=== PATIENT | female | born 1940 | race Caucasian/White ===

== ENCOUNTER → 2018-02-02 | Outpatient (CLI) | payer OTHER | LOC: M.RAD 10:34 | DX: Z12.31 Encounter for screening mammogram for malignant neoplasm of breast (principal) ==

== ENCOUNTER → 2018-02-08 | Outpatient (CLI) | payer OTHER | LOC: M.RAD 10:17 | DX: R92.1 Mammographic calcification found on diagnostic imaging of breast (principal) ==

== ENCOUNTER → 2018-08-16 | Outpatient (CLI) | payer OTHER | LOC: M.RAD 10:40 | DX: R92.1 Mammographic calcification found on diagnostic imaging of breast (principal); Z85.3 Personal history of malignant neoplasm of breast ==

== ENCOUNTER → 2018-08-25 | Outpatient (CLI) | payer OTHER ==
--- NOTE | 2018-09-01 13:09 | PATH ---
[address] [address] PATHOLOGY RPT PROCEDURE Name: ZELDA HAMPTON Room: [facility].#: [id number] Admission: 08/25/18 Date of : 42 Discharge: Report #: [id number] Path Case #: [id number] [facility] Accession Number: [id number] . 01 Material submitted: . breast - LEFT BREAST BIOPSY. Modifiers: left . 01 Clinical history: . Left breast stereotactic biopsy for calcification . 02 Diagnosis: Left breast calcifications, stereotactic biopsy: - DUCTAL CARCINOMA IN SITU, NUCLEAR GRADE II, CRIBRIFORM TYPE, SPANNING AT LEAST 6 MM, ASSOCIATED WITH CALCIFICATIONS. SEE COMMENT. (JOZEF:nathaly; 08/26/2018) MBR/08/26/2018 . 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 Calcifications are also seen in nonneoplastic breast tissue. Estrogen and progesterone receptor studies are pending on A3 and will be the subject of an addendum report. Reviewed with Dr. Tobin Espino who agrees with the diagnosis. Marina (acting [facility] breast navigator) notified at approximately 1035 on 08/27/2018. (JOZEF:nathaly; 08/26/2018) . 02 Addendum: . Special studies report received from [facility], [address] [place] [address], [address], [place], [address], on case [id number], labeled with their number [id number], dated 08/31/2018. . Breast/Prognostic Marker Analysis . Specimen Site: Lt Breast, Calcs, Breast cancer-DCIS. Specimen ID #: [id number] . ER (Estrogen Receptor) Present/Positive Percent: 70.00% Analysis: Manual Comments: Staining intensity: Moderate to strong. Prognostic groupings are reported only for invasive, primary breast carcinomas, Please disregard the reference ranges on the right. . OR (Progesterone Receptor) Absent/Negative Percent: 0.00 Analysis: [place] [address] PATHOLOGY RPT PROCEDURE Name: ZELDA HAMPTON Room: [facility].#: [id number] Admission: 08/25/18 Date of : 42 Discharge: Report #: [id number] Path Case #: [id number] Comments: Prognostic groupings are reported only for invasive, primary breast carcinomas, Please disregard the reference ranges on the right. . Time to Fixation (Cold Ischemic Time): 1 minute Duration of Fixation: 9 hours 29 minutes Type of Fixative: 10% Neutral Buffered Formalin . . at [employer], [facility]. Chetan Bhakta MD Surgical Pathologist . Methodology A rabbit monoclonal antibody (clone SP1) that recognized the Estrogen Receptor is used to perform immunohistochemistry on routinely fixed (formalin) paraffin embedded tissue on the [place] [employer]. The specimen is processed using a polymer detection system. The percentage of stained tumor nuclei is determined either manually or by image analysis. This test is intended for in vitro diagnostic use. This test is used for clinical purposes. . A rabbit monoclonal antibody (clone 1E2) that recognized the Progesterone Receptor is used to perform immunohistochemistry on routinely fixed (formalin) paraffin embedded tissue on the [place] Benchmark. The specimen is processed using a polymer detection system. The percentage of stained tumor nuclei is determined either manually or by image analysis. This test is intended for in vitro diagnostic use. This test is used for clinical purposes. . . Intended Use: This antibody is intended for in vitro diagnostic (IVD) use. Estrogen Receptor (ER) (SP1) is a rabbit monoclonal antibody (IgG) that is intended for the qualitative detection of estrogen receptor (ER) antigen in sections of formalin-fixed, paraffin-embedded tissue. ER is a rabbit monoclonal antibody that recognizes human estrogen receptor alpha. . This antibody is intended for in vitro diagnostic (IVD) use. Progesterone Receptor (OR) (1E2) is a rabbit monoclonal antibody (IgG) that is intended for the qualitative detection of progesterone receptor (OR) antigen in sections of formalin fixed, paraffin embedded tissue. OR is a rabbit monoclonal antibody that recognizes the A and B forms of the human progesterone receptor. . Disclaimer: This Test was performed by [employer] at [facility], [address]. . [place] [address] PATHOLOGY RPT PROCEDURE Name: ZELDA HAMPTON Room: [facility]#: [id number] Admission: 08/25/18 Date of : 42 Discharge: Report #: [id number] Path Case #: [id number] [facility] [employer] is a business unit of [employer]. a wholly-owned subsidiary of [employer]. . This assay has not been validated on decalcified tissues. Results should be interpreted with caution if this specimen was decalcified given the likelihood of false negativity on decalcified specimens. . Any image(s) that accompany this report is/are a food products sales representative image(s) only and should not be used to render a diagnosis. . This interpretation is contingent on the specimen and the clinical information received. . For any special tests/stains performed, known positive cells or tissues are tested with each marker and examined to ensure positivity. Positive and negative internal controls, if present, react appropriately. . This analysis is an adjunct to the evaluation of the referring physician and does not represent a final diagnosis. . The immunohistochemistry tests performed at [employer]. were validated on tissue fixed in 10% neutral buffered formalin. The performance characteristics of the tests performed on tissue processed in other fixatives is not known. . ER/OR ASCO/CAP guidelines require fixation in neutral buffered formalin for a minimum of 6 and a maximum of 72 hours. Fixation times less than 6 hours may not adequately preserve cell proteins. Fixation times longer than 72 hours may cause excess cross-linking of proteins reducing the antigen available for staining. Either scenario can cause reduced staining; hence false negative results are possible and should be considered for these situations. The time from biopsy/excision to fixation in formalin (cold ischemic time) must be less than 1 hour. Time to fixation (cold ischemic time) greater than 1 hour should be interpreted with caution. REF: Jessica Yoon, et al. [place] Society of Clinical Oncology/College of [place] Pathologists Guideline Recommendations for Immunohistochemical Testing of Estrogen and Progesterone Receptors in Breast Cancer. J Clin Oncol. 2009October 23; 28(16): 6951-0250. . . A complete copy of the report is on file. . Professional and Technical services performed by [employer]. at [address] [address], [place] [address]. . (AMJ 09/01/2018) AZJ/09/01/2018 Addendum Electronically Signed by Francisco Willingham MD, [place] [address] PATHOLOGY RPT PROCEDURE Name: ZELDA HAMPTON Room: [facility]#: [id number] Admission: 08/25/18 Date of : 42 Discharge: Report #: [id number] Path Case #: [id number] . 02 Electronically signed: . Francisco Willingham MD, Pathologist NPI- [id number] . 01 Gross description: . Received in formalin labeled "Zelda Hampton, left breast calcifications," are multiple needle cores of yellow-mclaughlin fibrofatty tissue measuring 2.5 x 2.6 x 0.6 cm in aggregate dimensions. Additionally received in the same container is a blue plastic cassette containing multiple needle cores of yellow-mclaughlin fibrofatty tissue measuring 2.5 x 2.0 x 0.5 cm in aggregate dimensions. The tissue in the cassette is transferred to cassette A1 and the remaining tissue is submitted in its entirety in cassette A2 and A3. The cold ischemic time is 1 minute. The total formalin fixation time is 9 hours and 29 minutes. (TSD; 08/25/2018) TOB/TOB . 02 Pathologist provided ICD-10: D05.12 . 02 CPT . 079262 Specimen Comment: A courtesy copy of this report has been sent to Specimen Comment: [phone], , . Specimen Comment: Report sent to ,DR GARZON / DR LORA Performed at: [address], [place] [address] MD Shine Eastman MD Phone: [phone] Performed at: 02 [facility] [address], [place], [place] [address] MD Francisco Willingham MD Phone: [phone]
== END | disposition home or self-care (01) ==
LOC: M.RAD 07:46
DX: D05.12 Intraductal carcinoma in situ of left breast (principal)

== ENCOUNTER → 2018-09-08 | Outpatient (CLI) | payer OTHER ==
[~2018-09-08] MED LIST: FOSAMAX 70 MG T70 MG PO; HYDROCHLOROTH12.5 M1 PO; LIPITOR 20 MG T20 M1 PO; LISINOPRIL10 MG PO
[2018-09-08 08:23] LABS: CREATININE 0.9 mg/dL (0.6-1.3)
== END ==
LOC: M.LAB 08:00 → M.MRI 09:30
PROVIDERS: Surgery
DX: C50.912 Malignant neoplasm of unspecified site of left female breast (principal); Z98.890 Other specified postprocedural states

== ENCOUNTER → 2018-09-10 | Outpatient (CLI) | payer OTHER ==
--- NOTE | ~2018-09-10 | CON ---
[address] [address] CONSULTATION Name: DUONGHUMPHREY GENEVIEVE [facility] [id number] Admission: 09/10/18 Attend Phys: Javier Whitney MD Discharge: Date of : 42 Report #: [id number] THIS REPORT FOR: //name// CC: Javier Gallardo DATE OF SERVICE: 09/10/2018 REFERRING PHYSICIANS: Include Lyric Lux MD; Skye King MD and Clem Gallardo DO. [facility] phone is [phone]. PRIMARY SITE AND HISTOPATHOLOGY: The patient has a ductal carcinoma in situ of the left breast. HISTORY OF PRESENT ILLNESS: The patient is a 78-year-old woman who was treated with breast conservation therapy for what appeared to be ductal carcinoma in situ of the left breast about 23 years ago at [facility] and she remembers receiving about 6 weeks of radiation therapy after lumpectomy and those records probably are not obtainable at this point since that hospital has closed down and then most recently, she had a mammogram performed on 02/02/2018, which showed calcifications in the left breast and she had additional views and ultimately had a biopsy of this area on 08/25/2018, which showed a grade 2 ductal carcinoma in situ, cribriform type spanning at least 0.6 cm. That was 70% estrogen receptor positive, 0% progesterone receptor positive and she saw her surgeon, Dr. Lux who discussed the option of a lumpectomy with re-radiation, lumpectomy without radiation therapy or mastectomy. So, she presents to discuss her treatment options. She also saw Dr. King. I discussed the option of antiestrogen therapy after her operation. PAST MEDICAL HISTORY AND PAST SURGICAL HISTORY: Includes cataract repair, hypertension and also, the breast conservation therapy in 1992 at [facility]. MEDICATIONS: Atorvastatin, lisinopril, hydrochlorothiazide, alendronate. ALLERGIES: She has no known drug allergies. OBSTETRICS AND GYNECOLOGY: Menarche at age 15. Last menstrual period age 53. She is 2, para 0. FAMILY HISTORY: Mother and father's side is unknown. 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 She has a daughter. She has a son. Cigarettes, she smoked about a half pack per day cigarettes since her 20s[place] [address] CONSULTATION Name: HUMPHREY WATTERS Room: [facility]#: [id number] Admission: 09/10/18 Attend Phys: Javier Whitney MD Discharge: Date of : 42 Report #: [id number] quit smoking in 2003. REVIEW OF SYSTEMS: GENERAL: She denied having any fevers or chills. SKIN: She denied having any color changes, itching, bruising. LYMPH NODES: She does not have any enlarged or painful glands in the neck. ENDOCRINE: She denied having any hot or cold intolerance. HEMATOLOGY AND IMMUNOLOGY: The patient had no recent bleeding. MUSCULOSKELETAL: She does have chronic back pain in the sacroiliac joints. HEAD AND NECK: She denied having any headaches, migraines. RESPIRATION: She denied having any shortness of breath. CARDIOVASCULAR: She denies having any palpitations. GASTROINTESTINAL: She denied having any nausea or vomiting. NEUROLOGIC: Denied having any focal weakness. PHYSICAL EXAMINATION: With my nurse, Coby Mclaughlin, present: VITAL SIGNS: Height 5 feet 6 inches, weight pounds, blood pressure 141/58, pulse 83, oxygen saturation 97%. GENERAL PSYCHIATRIC: The patient was alert and oriented, no acute distress. LYMPH NODES: No cervical, supraclavicular or axillary lymphadenopathy. EYES: Pupils are equal, round, react to light and accommodation. Extraocular movement was intact. HEAD, EARS, NOSE AND THROAT: Mouth had no visible lesions. BREASTS: Right breast had no suspicious palpable masses. Left breast had no suspicious palpable masses. ABDOMEN: Nontender. Spleen is not palpable. Liver was at the costal margin. EXTREMITIES: Had no clubbing, cyanosis or edema. NEUROLOGIC: Cranial nerves 2-12 are intact. Sensation was intact. The patient had 5/5 strength in her extremities. ASSESSMENT AND PLAN: The patient was told that treatment options include lumpectomy without radiation therapy, lumpectomy with radiation therapy or mastectomy. The efficacy of lumpectomy without radiation therapy can be found in the article with a title Pathologic Findings From The National Surgical Adjuvant Breast Project Protocol B17 that was published in the article, which had the title Lumpectomy and Radiation Therapy For The Treatment of Intraductal Breast Cancer Findings From The National Surgical Adjuvant Breast And Bowel Project B17. Patients were randomized between lumpectomy alone and lumpectomy and radiation therapy and the radiation therapy reduced noninvasive breast tumor recurrence is from 13.4% to 8.2% and an invasive breast recurrences were decreased from 13.4% to 3.9%. Despite no impact on survival, so I discussed re-radiation versus no re-radiation. With re-radiation, she can have skin thickening. There is some risk of a nonhealing ulcer developing though in recent series, the people tend to tolerate re-radiation. In her case, she was more interested in just lumpectomy alone at this point and I think that is reasonable. The risks, benefits and logistics of radiation therapy were [facility] [address] [place] [address] CONSULTATION Name: DUONGHUMPHREY GENEVIEVE Room: [facility].#: [id number] Admission: 09/10/18 Attend Phys: Javier Whitney MD Discharge: Date of : 42 Report #: [id number] discussed with the patient in detail and so right now, she is planning on going back to her surgeon undergoing lumpectomy alone if that is cosmetically feasible and then, regular followup with the patient after surgery just to confirm the pathology and final treatment management. Thank you very much for this consult. By: 1612 1251Dbrianda Whitney MD /nt
== END ==
LOC: M.RTH 04:36
DX: Z08 Encounter for follow-up examination after completed treatment for malignant neoplasm (principal); I10 Essential (primary) hypertension; Z85.3 Personal history of malignant neoplasm of breast; Z79.899 Other long term (current) drug therapy; Z92.3 Personal history of irradiation

== ENCOUNTER → 2018-09-10 | Outpatient (CLI) | payer OTHER | LOC: M.ULTRA 10:53 | DX: C50.912 Malignant neoplasm of unspecified site of left female breast (principal) ==

== ENCOUNTER → 2018-09-14 | Outpatient (CLI) | payer OTHER ==
[~2018-09-14] MED LIST changes: +NORCO 5-325 TA1 EACH PO
--- NOTE | 2018-09-16 16:06 | PATH ---
[address] [address] PATHOLOGY RPT PROCEDURE Name: ZELDA HAMPTON Room: [facility] Lindsay#: [id number] Admission: 09/14/18 Date of : 42 Discharge: Report #: [id number] Path Case #: [id number] [facility] Accession Number: [id number] . 01 Material submitted: . axilla - LEFT AXILLARY NODE. Modifiers: left . 01 Clinician provided ICD-10: n . 01 Clinical history: . 2.01 x 0.91 x 1.71 cm mass Hx of DCIS . 02 Diagnosis: "Left axillary node", needle biopsy: - Lymph node with mild hyperplasia; no evidence of lymphoma or metastatic carcinoma. (See comment) (JAEL:nathaly; 09/16/2018) BHAVANI/09/16/2018 . 02 Comment: Sections show needle core biopsy fragments of lymph node with retained kait architecture. Sinus histiocytes are noted. Small germinal centers are identified. No markedly atypical lymphoid cells, including Ruben-Rufino cells, are identified. No metastatic carcinoma, granulomas or other infiltrative processes are seen. . To highlight the kait architecture, properly controlled immunohistochemical stains are performed. . Block A1 CD20 - stains B-cells primarily in follicles PAX-5 - stains B-cells primarily in follicles CD3 - stains interfollicular T-cells CD10 - highlights germinal centers BCL-6 - highlights germinal centers BCL-2 - germinal centers are nonreactive . There is no evidence of lymphoma or metastatic carcinoma identified on H and E staining. The H and E stains are co-reviewed with Dr. Francisco Willingham. Clinical and radiographic correlation is recommended. . The case was discussed preliminarily with Dr. Lyric Lux by Dr. Francisco Willingham on 09/15/18 at 0950. . (CLW:nathaly; 09/16/2018) . 02 [place] [address] PATHOLOGY RPT PROCEDURE Name: ZELDA HAMPTONE Room: [facility]#: [id number] Admission: 09/14/18 Date of : 42 Discharge: Report #: [id number] Path Case #: [id number] Electronically signed: . Caroline Palomares MD, Pathologist NPI- [id number] . 01 Gross description: . Received in formalin labeled "Zelda Hampton, left axillary node," are 6 distinct needle cores of brock soft tissue ranging from 0.6 to 1.6 cm in length and measuring less than 0.1 cm each in diameter. The specimen is submitted entirely in cassettes A1 through A3. (TSD; 09/14/2018) TOB/TOB . 02 Pathologist provided ICD-10: R59.0 . 02 CPT . 389431, A14662, Z24886 Specimen Comment: A courtesy copy of this report has been sent to Specimen Comment: [phone], . Specimen Comment: Report sent to / DR YUN Performed at: 01 [facility] [address] [place] [id number] MD Shine Eastman MD Phone: [phone] Performed at: [id number] [id number] MD Sam Dan MD Phone: [phone]
== END | disposition home or self-care (01) ==
LOC: M.ULTRA 12:04
DX: R59.0 Localized enlarged lymph nodes (principal); Z79.899 Other long term (current) drug therapy; Z79.891 Long term (current) use of opiate analgesic; Z98.890 Other specified postprocedural states

== ENCOUNTER → 2018-09-17 | Day surgery (SDC) | payer OTHER ==
--- NOTE | ~2018-09-17 | OP ---
[address] [address] OPERATIVE REPORT Name: HUMPHREY WATTERS Room: [facility].#: [id number] Admission: 09/17/18 Attend Phys: Lyric Lux MD Discharge: Date of : 42 Report #: [id number] THIS REPORT FOR: //name// CC: Clem Lux DATE OF SERVICE: 09/17/2018 PREOPERATIVE DIAGNOSIS: Malignant neoplasm overlapping sites, left female breast. POSTOPERATIVE DIAGNOSIS: Malignant neoplasm overlapping sites, left female breast. PROCEDURE: 1. Left breast needle localized lumpectomy. 2. Left breast reconstruction using local tissue flaps x 2, 3 x 3 cm. SURGEON: Dr. Lyric Lux. LINE APPLIANCE ASSEMBLER: EMMA Marte. ANESTHESIA: General anesthesia. ESTIMATED BLOOD LOSS: 1 mL. COMPLICATIONS: None. FINDINGS: Incision 4 cm in length, 2 cm from nipple 8 o'clock position, periareolar clip within the mammographic specimen. INDICATIONS: The patient is a 78-year-old female with a history of breast cancer in 1992 of left breast, status post lumpectomy and radiation. This was DCIS. She has a new breast cancer noted on imaging in 01/2018 and redemonstrated on imaging of 07/2018 showing an increase in Willis at the 6 o'clock left breast, 5 cm from nipple. Stereotactic biopsy on 08/25/2018 showed grade 2 DCIS, ER positive, [place] negative. She was deemed an appropriate candidate for repeat lumpectomy without additional radiation. Risks and benefits for lumpectomy were discussed with the patient, delineated in the H and P and she agreed to proceed. PROCEDURE IN DETAIL: The patient was brought to the operating room after informed consent had been obtained. She was placed under general anesthesia in the supine position with the left arm extended. The left breast was then prepped and draped in normal sterile manner. Prior to skin incision, a combination of 1% lidocaine plain and 0.5% Marcaine [place] [address] OPERATIVE REPORT Name: HUMPHREY WATTERS Room: [facility] M.R.#: [id number] Admission: 09/17/18 Attend Phys: Lyric Lux MD Discharge: Date of : 42 Report #: [id number] A periareolar skin incision was made with a knife. This was deepened to the subcutaneous tissues using the Bovie electrocautery. Path was created toward the wire exit site. Once the wire was identified, was grasped with 2 hemostat, was brought into the incision. The Bovie electrocautery was then used to excise a lump of tissue surrounding the pathway of the wire and an obvious biopsy cavity. Once completely removed, it was labeled for orientation purposes. This was somewhat difficult. It was very close to the anterior inferior margin of the skin. It was sent for mammographic specimen and mammogram did confirm that the clip was within the specimen. The wound was copiously irrigated with normal saline. The decision was made to proceed with margins. The region of the inferior margin was grasped with an Allis clamp. The Metzenbaum scissors were used to excise a rim of tissue to encompass the new inferior margin. First attention was turned to the medial margin. This was excised with the Bovie electrocautery, labeled for orientation purposes and handed off for permanent specimen. This was repeated in the region of the inferior margin, which was very difficult due to its proximity to the skin and excised with Metzenbaum scissors and was a fragmented specimen. If this were positive, I would recommend excision of the skin in this region for margin. This was repeated then in the lateral margin, superior margin posterior and anterior margins. At this point, the lumpectomy cavity was marked with four Hemoclips. I then proceeded with mobilization of the breast tissue to close the defect. The breast tissue was mobilized in the superficial plane with the Bovie electrocautery, both medially, superiorly and laterally. This was then mobilized also in the posterior plane as well, creating mobilized tissue flaps approximately 3 x 3 cm medially and 3 x 3 cm laterally. These breast flaps were then reapproximated with interrupted 3-0 Vicryl dyed sutures to fill in as much of the space inferiorly as possible. I then proceeded with additional mobilization in the superficial plane to release some of the tension for better cosmesis. At this point, the deep dermal layers were closed with interrupted 3-0 Vicryl sutures and skin was closed with 4-0 Monocryl in a subcuticular manner. The wound was dressed with Dermabond dressing. The patient tolerated the procedure well. Sponge, lap and needle counts were correct x 2 at the end of procedure. She was transferred to recovery in stable condition. By: 1205 1414Minilana Lux MD /nt
[2018-09-17 07:37] LABS: HEMATOCRIT 38.7 % (37.0-47.0); HEMOGLOBIN 13.3 gm/dL (12.0-15.0); MCH 31.3 pg (26.0-34.0); MCHC 34.4 g/dL (28.0-37.0); MPV 8.1 fl. (7.2-11.1); RBC 4.25 mil/uL (4.20-5.00); RDW-CV 13.7 % (10.5-14.5); WBC 6.3 thou/uL (4.0-11.0)
[2018-09-17 07:49] LABS: CALCIUM 9.4 mg/dL (8.5-10.1); CREATININE 0.8 mg/dL (0.6-1.3)
--- NOTE | 2018-09-18 12:27 | EKG ---
[place] [address] ELECTROCARDIOGRAM REPORT Name: AMBER WATTERSDYChan VALLEJO Room: [facility].#: [id number] Admission: 09/17/18 Attend Phys: Lyric Lux MD Discharge: Date of : 42 Report #: [id number] THIS REPORT FOR: //name// [facility] Test Date: 2018-09-17 Test Time: 07:21:02 Pat Name: HUMPHREY WATTERS Department: Room: Gender: [employer] Repairer: [facility] : 1940 Requested By: Lyric Lux Order Number: [id number] Reading MD: Kang Szymanski Measurements Intervals [place] Rate: 68 P: 23 MD: 155 QRS: 7 QRSD: 82 T: 13 QT: 382 QTc: 407 Interpretive Statements Sinus rhythm No previous ECG available for comparison Electronically Signed On 09-18-2018 12:27:49 CDT by Kang Szymanski [email or web address] <ELECTRONICALLY SIGNED> By: Kang Szymanski MD, [facility] 09/18/18 1227 0721 0721 Kang Szymanski MD, FACC /EPI
--- NOTE | 2018-09-22 11:06 | PATH ---
[address] [address] PATHOLOGY RPT PROCEDURE Name: ZELDA HAMPTON Room: [facility] M.R.#: [id number] Admission: 09/17/18 Date of : 42 Discharge: Report #: [id number] Path Case #: [id number] [facility] Accession Number: [id number] . 01 Material submitted: . PART A: breast - LEFT BREAST CANCER, LONG LAT,SHORT SUP,DBL DEEP. Modifiers: left PART B: breast - LEFT BREAST, STITCH HUNTLEY NEW MEDIAL MARGIN. Modifiers: left PART C: breast - LEFT BREAST, STITCH HUNTLEY NEW INFERIOR MARGIN. Modifiers: left PART D: breast - LEFT BREAST, STITCH HUNTLEY NEW LATERAL MARGIN. Modifiers: left PART E: breast - LEFT BREAST, STITCH HUNTLEY NEW SUPERIOR MARGIN. Modifiers: left PART F: breast - LEFT BREAST, STITCH HUNTLEY NEW POSTERIOR MARGIN. Modifiers: left PART G: breast - LEFT BREAST, STITCH HUNTLEY NEW ANTERIOR MARGIN. Modifiers: left . 01 Clinical history: . Left breast cancer. A. Additional stitch used to re-aproximate biopsy cavity; K=lateral, 10=superior . 02 Diagnosis: A. Tissue submitted as "left breast cancer": - RESIDUAL DUCTAL CARCINOMA IN SITU (DCIS), NUCLEAR GRADE II (INTERMEDIATE GRADE), CRIBRIFORM TYPE, ADJACENT TO CHANGES OF PRIOR BIOPSY, SPANNING AN ESTIMATED 25 MM, WITH ALL SURGICAL MARGINS FREE OF INVOLVEMENT AND CLOSEST (POSTERIOR) LOCATED 0.3 MM AWAY. SEE COMMENT. . B. Left breast, stitch marked new medial margin: - DCIS, NUCLEAR GRADE II (INTERMEDIATE GRADE), CRIBRIFORM TYPE, SPANNING 0.7 MM, WITH NEW MARGIN FREE OF INVOLVEMENT AND LOCATED 2 MM AWAY. SEE COMMENT. . C. Left breast, new inferior margin: - Benign breast tissue with changes of prior biopsy and luminal calcifications, negative for atypia. . D. Left breast, new lateral margin: - Benign breast tissue with luminal calcifications, negative for atypia. . E. Left breast, new superior margin: - Benign breast tissue with luminal calcifications, negative for atypia. . F. Left breast, new posterior margin: - Benign breast tissue, [place] [address] PATHOLOGY RPT PROCEDURE Name: ZELDA HAMPTON Room: [facility].#: [id number] Admission: 09/17/18 Date of : 42 Discharge: Report #: [id number] Path Case #: [id number] . G. LEFT BREAST, NEW ANTERIOR MARGIN: - DCIS, NUCLEAR GRADE II (INTERMEDIATE GRADE), SOLID/CRIBRIFORM TYPE, SPANNING 0.4 MM, WITH NEW MARGIN FREE OF INVOLVEMENT AND LOCATED 0.5 MM AWAY. - Non-neoplastic breast tissue with luminal calcifications. - See comment. . (JOZEF:nathaly:kiel; 09/21/2018) DANYR/09/22/2018 . 02 Comment: Surgical Pathology Cancer Case Summary . DCIS OF THE BREAST: Resection . Procedure ___ Excision (less than total mastectomy) . Specimen Laterality ___ Left . Size (Extent) of DCIS Estimated size (extent) of DCIS is at least (millimeters) 25 mm . Histologic Type ___ Ductal carcinoma in situ . + Architectural Patterns + ___ Cribriform . Nuclear Grade ___ Grade II (intermediate) . Necrosis ___ Not identified . Margins ___ Uninvolved by DCIS Distance from closest margin: 0.5 mm Specify closest margin: Anterior . Regional Lymph Nodes ___ No lymph nodes submitted or found (see comment) . Pathologic Stage Classification (pTNM, AJCC 8th Edition) Primary Tumor (pT) ___ pTis (DCIS):[place] [address] PATHOLOGY RPT PROCEDURE Name: ZELDA HAMPTON GENEVIEVE Room: [facility] Angélica#: [id number] Admission: 09/17/18 Date of : 42 Discharge: Report #: [id number] Path Case #: [id number] . Regional Lymph Nodes (pN) Category (pN) ___ pNX:Regional lymph nodes cannot be assessed (eg, not removed for pathological study or previously removed) . + Breast Biomarker Testing Performed on Previous Biopsy . + Estrogen Receptor (ER) + ___ Positive 70% . + Progesterone Receptor (PgR) + ___ Positive 0% . + Testing Performed on A3 . + Microcalcifications + ___ Present in nonneoplastic tissue . + Clinical History + ___ Prior history of breast cancer + Specify site, diagnosis, and prior treatment: Previous left breast calcification stereotactic biopsy showing DCIS, nuclear grade II, cribriform type, spanning at least 6 mm, associated with calcifications ([id number]). . + Radiologic Finding + ___ Calcifications . The span of residual DCIS is estimated based on its identification in scattered sections taken from around the biopsy site including A3 and A9 as well as additional marginal tissues (medial and anterior, B and G). The closest approximation to a final margin is seen in the new anterior marginal tissue (G), where DCIS involves an isolated duct spanning 0.4 mm, and located 0.5 mm away from the new final margin. . Although there were no lymph nodes removed, a recent prior needle biopsy of left axillary node was negative for lymphoma or metastatic carcinoma ([id number]). . A3, A4, A9, and G2 reviewed with Dr. Tobin Espino who agrees with the diagnosis. . (JOZEF:nathaly:db; 09/21/2018) . 02 Electronically signed: . Francisco Willingham MD, Pathologist NPI- [id number] . 01 [place] [address] PATHOLOGY RPT PROCEDURE Name: ZELDA HAMPTON Room: [facility]#: [id number] Admission: 09/17/18 Date of : 42 Discharge: Report #: [id number] Path Case #: [id number] Gross description: . A. Received in formalin labeled "Zelda Hampton, left breast cancer" and further labeled on the requisition as "long lateral, short superior, double deep, additional stitch used to reapproximate biopsy cavity. Out at 1056, in formalin at 1109, K= lateral, 10= superior pole" is an oriented breast lumpectomy specimen weighing 9 g and measuring 4.1 cm from superior to inferior, 3.9 cm from medial to lateral, and 1.0 cm from anterior to posterior. A guidewire extends along the lateral aspect of the specimen. The specimen is inked as follows: superior-red, inferior-blue, anterior-green, posterior-black, lateral-orange, medial-yellow. The specimen is sectioned from superior into 12 slices. Within slices 7-12 is a pink-brock biopsy cavity or possible mass measuring 1.8 x 1.3 x 0.6 cm. The mass measures to the margins as follows: 2.0 cm to superior, grossly abuts inferior, grossly abuts anterior, less than 0.1 cm to posterior, 0.6 cm to lateral, and 0.1 cm to medial. A biopsy clip is not identified. The uninvolved breast parenchyma is brock-yellow with 40% dense white fibrous tissue. The specimen is submitted entirely as follows: A1 slice 1, superior margin, perpendicular sections A2-A11 slices 2-11 A12 slice 12, inferior margin, perpendicular sections The specimen is removed from the patient at 1056 and placed in formalin at 1109 on September 17, 2018. The specimen is removed from formalin at 1850 on September 19, 2018. . B. Received in formalin labeled "Zelda Hampton, left breast, stitch huntley new medial margin" is an oriented portion of yellow-brock lobulated fibroadipose tissue measuring 3.2 x 1.5 x 0.3 cm. There is a stitch on one aspect, indicated as the true margin, which is inked black. The opposite aspect is inked blue. The specimen is serially sectioned and submitted entirely in B1. . C. Received in formalin labeled "Zelda Hampton, left breast, stitch huntley new inferior margin, fragmented" are two oriented portions of yellow-brock lobulated fibroadipose tissue measuring 3.2 x 1.5 x 0.4 and 2.0 x 1.0 x 0.3 cm. There is a stitch on one aspect of each, indicated as the true margin, which is inked black. The opposite aspect is inked blue. The specimen is serially sectioned and submitted entirely in C1-C2. . D. Received in formalin labeled "Zelda Hampton, left breast, stitch huntley new lateral margin" is an oriented portion of yellow-brock lobulated fibroadipose tissue measuring 1.8 x 1.4 x 0.7 cm. There is a stitch on one aspect, indicated as the true margin, which is inked black. The opposite aspect is inked blue. The specimen is serially sectioned and submitted entirely in D1. . E. Received in formalin labeled "Zelda Hampton, left breast, stitch huntley new superior margin" is an oriented portion of yellow-brock lobulated fibroadipose tissue measuring 3.0 x 1.4 x 0.5 cm. There is a stitch on one aspect, indicated as the true margin, which is [place] [address] PATHOLOGY RPT PROCEDURE Name: ZELDA HAMPTON Room: [facility] M.R.#: [id number] Admission: 09/17/18 Date of : 42 Discharge: Report #: [id number] Path Case #: [id number] opposite aspect is inked blue. The specimen is serially sectioned and submitted entirely in E1-E2. . F. Received in formalin labeled "Memo, Zelda, left breast, stitch huntley new posterior margin" is an oriented portion of yellow-brock lobulated fibroadipose tissue measuring 3.7 x 1.5 x 0.6 cm. There is a stitch on one aspect, indicated as the true margin, which is inked black. The opposite aspect is inked blue. The specimen is serially sectioned and submitted entirely in F1-F2. . G. Received in formalin labeled "Memo, Zelda, left breast, stitch huntley new anterior margin" is an oriented portion of yellow-brock lobulated fibroadipose tissue measuring 2.1 x 2.0 x 0.5 cm. There is a stitch on one aspect, indicated as the true margin, which is inked black. The opposite aspect is inked blue. The specimen is serially sectioned and submitted entirely in G1-G2. ([facility]; 09/17/2018) SYC/SYC . 02 Pathologist provided ICD-10: D05.02, N62 . 02 CPT . 792220, 544760, 924636, 968976, 544668, 774536, 599310 Specimen Comment: A courtesy copy of this report has been sent to Specimen Comment: [phone], . Specimen Comment: Report sent to / DR GARZON Performed at: 01 [facility] [address], [place] [id number] MD Shine Eastman MD Phone: [phone] Performed at: 02 [facility] [address] , [place], [place] [id number] MD Francisco Willingham MD Phone: [phone]
== END | disposition home or self-care (01) ==
LOC: M.SUR 06:43 → M.RAD 08:00 → M.SUR 08:00 → EDSTATUS 08:00
PROVIDERS: Surgery
DX: D05.12 Intraductal carcinoma in situ of left breast (principal); N62 Hypertrophy of breast; I10 Essential (primary) hypertension; Z98.890 Other specified postprocedural states; Z79.899 Other long term (current) drug therapy; Z87.891 Personal history of nicotine dependence

== ENCOUNTER → 2018-10-08 | Day surgery (SDC) | payer OTHER ==
--- NOTE | ~2018-10-08 | OP ---
[address] [address] OPERATIVE REPORT Name: DUONGHUMPHREY GENEVIEVE Room: [facility].#: [id number] Admission: 10/08/18 Attend Phys: Lyric Lux MD Discharge: Date of : 42 Report #: [id number] THIS REPORT FOR: //name// CC: Clem Lux DATE OF SERVICE: 10/08/2018 PREOPERATIVE DIAGNOSIS: Left breast ductal carcinoma in situ involved close anterior and medial margins. POSTOPERATIVE DIAGNOSIS: Left breast ductal carcinoma in situ involved close anterior and medial margins. PROCEDURE: Reexcision of medial and anterior margin left breast lumpectomy site. SURGEON: Dr. Lyric Lux. INSURANCE JOB TITLES: EMMA Christiansen ANESTHESIA: General anesthesia. ESTIMATED BLOOD LOSS: 1 mL. COMPLICATIONS: None. SPECIMENS: 1. Left breast new medial margin. 2. Left breast new anterior margin. INDICATIONS: The patient is a 78-year-old female with imaging in January that showed developing calcifications in the left breast. A 6-month repeat mammogram on 08/16/2018 showed a slight increase in the calcifications at 6 o'clock left breast, 5 cm from the nipple. Stereotactic biopsy showed grade 2 DCIS. She underwent a lumpectomy on 09/17/2018. Final pathology showed a 2.5 cm region of grade 2 DCIS in the primary specimen. They separately obtained margins and the anterior margin showed a new 0.5 mm margin for DCIS. The medial margin was 2 mm. She had history of a prior breast cancer in that breast and the hope was to avoid repeat radiation therapy. Given the recommended 2 mm margins for DCIS, the decision was made that we needed to proceed with excision of the anterior margin. Given that we were already going to be in the operating room, we elected to excise the medial margin as well for a little more measure of safety. Therefore, risks and benefits for reexcision of margins were discussed with the patient and delineated in the H and P [place] [address] OPERATIVE REPORT Name: HUMPHREY WATTERS Room: [facility]..#: [id number] Admission: 10/08/18 Attend Phys: Lyric Lux MD Discharge: Date of : 42 Report #: [id number] DESCRIPTION OF PROCEDURE: The patient was brought to the operating room after informed consent had been obtained. She was placed under general anesthesia in the supine position with the left arm extended. Her previous Dermabond was removed with adhesive remover. The left breast was then prepped and draped in normal sterile manner. Prior to skin incision 0.5% Marcaine plain was introduced. The previous skin incision was opened with a knife. Her seroma cavity was aspirated. Her lumpectomy cavity was examined. The previously reapproximated local tissue flaps sutures were divided to expose the original lumpectomy cavity. The region of the medial margin was grasped with an Allis clamp. The Bovie electrocautery was used to excise the small rim of tissue to encompass the new medial margin. This was then repeated in the region of the anterior margin. The region of the anterior margin was grasped with an Allis clamp. Bovie electrocautery was used to excise a thin rim of tissue to encompass the new anterior margin. Both of these were labeled for orientation purposes and handed off for permanent specimen. The wound bed was copiously irrigated and noted to be adequately hemostatic. There was no need for additional clip placement. There were at least 2 clips marking the lumpectomy cavity. The tissue flaps were again reapproximated with interrupted sutures of dyed 3-0 Vicryl to close the created defect. The deep dermal layers were then closed with interrupted 3-0 Vicryl suture. Skin was closed with 4-0 Monocryl in a subcuticular manner. The wound was dressed with Dermabond dressing. The patient tolerated the procedure well. Sponge, lap and needle counts were correct x 2 at the end of the procedure. She was transferred to recovery in stable condition. By: [id number] Lux MD /rodrigo
== END | disposition home or self-care (01) ==
LOC: M.SUR 06:51
DX: D05.12 Intraductal carcinoma in situ of left breast (principal); I10 Essential (primary) hypertension; Z79.899 Other long term (current) drug therapy; Z79.891 Long term (current) use of opiate analgesic; Z98.890 Other specified postprocedural states; Z85.3 Personal history of malignant neoplasm of breast; Z87.891 Personal history of nicotine dependence

== ENCOUNTER → 2019-02-07 | Outpatient (CLI) | payer OTHER | LOC: M.RAD 12:40 | DX: Z08 Encounter for follow-up examination after completed treatment for malignant neoplasm (principal); Z85.3 Personal history of malignant neoplasm of breast; Z92.3 Personal history of irradiation ==

== ENCOUNTER → 2020-02-13 | Outpatient (CLI) | payer MEDICARE | LOC: M.RAD 10:10 | PROVIDERS: ATTEND Internal Medicine | DX: C50.912 Malignant neoplasm of unspecified site of left female breast (principal); N64.89 Other specified disorders of breast ==

== ENCOUNTER → 2020-02-20 | Outpatient (CLI) | payer MEDICARE | LOC: M.RAD 13:37 | PROVIDERS: ATTEND Internal Medicine | DX: M85.88 Other specified disorders of bone density and structure, other site (principal); C50.912 Malignant neoplasm of unspecified site of left female breast ==

== ENCOUNTER → 2021-02-18 | Outpatient (CLI) | payer MEDICARE | LOC: M.RAD 10:31 | PROVIDERS: ATTEND Internal Medicine | DX: C50.912 Malignant neoplasm of unspecified site of left female breast (principal); R92.2 Inconclusive mammogram ==

== ENCOUNTER 2021-06-28 16:11 | Emergency (ER) | payer MEDICARE ==
[~2021-06-28] VITALS: Ht 167.6 cm; Wt 77.1 kg
[2021-06-28 17:54] LABS: URINE BILIRUBIN NEGATIVE (Negative); URINE BLOOD TRACE (Negative); URINE CLARITY CLEAR; URINE COLOR YELLOW; URINE GLUCOSE-RANDOM NEGATIVE (Negative); URINE KETONES NEGATIVE (Negative); URINE LEUKOCYTES-REFLEX NEGATIVE (Negative); URINE NITRITE-REFLEX NEGATIVE (Negative); URINE PROTEIN NEGATIVE (Negative); URINE SPECIFIC GRAVITY 1.025 (1.005-1.030); URINE UROBILINOGEN 0.2 E.U./dl (0.2-1.0)
[2021-06-28] MEDS ORDERED: NORCO5 PO (18:01)
[2021-06-28 18:30] VITALS: BP 135/85
== END 2021-06-28 18:30 | disposition home or self-care (01) ==
LOC: M.ERS 16:11
PROVIDERS: Physician Assistant
DX: M54.50 Low back pain, unspecified (principal); K59.00 Constipation, unspecified; Z79.899 Other long term (current) drug therapy